=== PATIENT | female | born 1990 | race Caucasian/White ===

== ENCOUNTER 2025-01-12 10:45 | Emergency (ER) | payer OTHER, SELFPAY ==
[2025-01-12 10:46] VITALS: BP 123/69
[2025-01-12] MEDS: NSS 1000 IV (13:08)
[2025-01-12] MEDS: TORADOL 15 MG IV (13:08)
[2025-01-12] MEDS: REGLAN 10 MG IV (13:09)
[2025-01-12 13:15] VITALS: BMI 25.9
[2025-01-12 13:23] LABS: Hematocrit 38.9 % (37.0-47.0); Hemoglobin 13.0 g/dL (12.0-16.0); Mean Corp Hgb Conc. 33.4 g/dL (33.0-37.0); Mean Corpuscular Volume 91.3 fL (81.0-99.0); Nucleated Red Blood Cells % 0 %; Platelet Count 197 10^3/uL (130-400); Red Cell Dist. Width 12.4 % (11.5-14.5)
[2025-01-12 13:32] LABS: HCG, Serum Qualitative Screen Negative
[2025-01-12 13:49] LABS: ALT (SGPT) 13 U/L (0-35); AST (SGOT) 19 U/L (14-36); Albumin 4.6 g/dl (3.5-5.0); Alkaline Phosphatase 46 U/L (38-126); Blood Urea Nitrogen 9 mg/dl (7-17); Calcium 9.0 mg/dl (8.4-10.2); Carbon Dioxide 23 mmol/L (22-30); Chloride 107 mmol/L (98-107); Estimated Creatinine Clearance > 125 ml/min; Glucose 88 mg/dl (70-99); Potassium 4.2 mmol/L (3.5-5.1); Sodium 139 mmol/L (135-145); Total Protein 7.3 g/dl (6.3-8.2); eGFR > 60.00
--- NOTE | 2025-01-12 14:21 | ED.GENMED ---
History of Present Illness
General
Chief Complaint: Dizziness
Source: patient
Exam Limitations: none
Time Seen by Provider: 01/12/25 11:51
Nursing documentation reviewed up to this point in time: agreed with
History of Present Illness
History of Present Illness:
see MDM
Past History
Past History
ED Past Medical History: None
ED Past Surgical History: None
Social History
Tobacco: Smoker
Alcohol: Occasional
Personal: Single
Living: with family
Employment: Employed
Family History
Family History: Other
Review of Systems
Review of Systems
Allergies reviewed?: Yes
All Other Systems: Not applicable
Phy Exam
Physical Exam
Physical Exam:
GENERAL: Alert , in no apparent distress
HEAD: NCAT
EYE: pupils equal and reactive, no nystagmus, no photophobia
NECK: Supple,full rom, nontender, no midline tendreness
ENT: o/p clr, mmm.
CARDIAC: Regular rate and rhythm . no edema
LUNGS: Clear breath sounds bilaterally, no acute respiratory distress, no wheezes/rales/rhonchi
ABDOMEN: Soft, without focal tenderness, no r/g, no cvat
NEUROLOGICAL: Alert and orientedx 4, cn intact, no facial asymmetry, 5/5 strength in UE/LE, sensation intact, romberg neg, ambulates without assistance, neg pronator drift
SKIN: Warm and dry, skin intact.
MUSCULOSKELETAL: No edema, well perfused.
PSYCH: Normal and appropriate interaction.
Course
Orders/Labs/Results
Orders:
Orders
01/12/25 12:34
0.9% Sodium Chloride 1000 ml [Nss] 1,000 ml IV BOLUS
01/12/25 12:36
Electrocardiogram (*1) Urgent
Reason for Study: Syncope
EKG- Treatment ONCE
Test Result ONCE
01/12/25 12:41
CT Head W/o Iv Contrast Urgent
Comment:
Reason For Exam: headache x 2 mo after hitting head, off balance
01/12/25 12:44
Ketorolac [Toradol] 15 mg IV NOW STA
Metoclopramide [Reglan] 10 mg IV NOW STA
01/12/25 13:10
Complete Blood Count/With Diff Urgent
Comprehensive Metabolic Panel Urgent
HCG, Serum Qualitative Screen Urgent
Lyme Progressive Urgent
01/12/25 14:39
Dexamethasone Sod Phosphate [Decadron] 10 mg IV NOW STA
01/12/25 13:10
01/12/25 13:10
Vital Signs
Initial and Last Documented VS:
Initial Vital Signs
Temp Pulse Resp BP Pulse Ox
36.9 C 87 16 123/69 97
01/12/25 10:46 01/12/25 10:46 01/12/25 10:46 01/12/25 10:46 01/12/25 10:46
Last Documented Vital Signs
Temp Pulse Resp BP Pulse Ox
36.9 C 67 16 123/59 98
01/12/25 10:46 01/12/25 15:02 01/12/25 10:46 01/12/25 15:02 01/12/25 15:02
MDM/Problems Addressed
Differential Diagnosis Includes:
see MDM
MDM/Problems Addressed:
Note:
CHIEF COMPLAINT(S)
Feeling lightheaded and near-syncopal episodes.
HISTORY OF PRESENT ILLNESS
The patient is a 34-year-old female who presents with a history of persistent headaches, lightheadedness, and episodes where she feels she might pass out, particularly when standing or walking. She reports that these symptoms have been present since
she fell and hit her head on concrete two months ago. Following the fall, the patient did not seek immediate medical attention due to a lack of insurance. She clarified that the fall was mechanical and not due to a fainting episode. Since the fall,
she has experienced daily headaches rated at a severity of 10 out of 10, which are unrelieved by [id number] medications such as ibuprofen (referred to as Motrin).
The patient notes that her symptoms have progressively worsened over the past two weeks, culminating in an incident 3 days ago at work where she nearly passed out after. She also described feeling unwell enough since that event and couldn�t attend a
concert because she felt she might fall. She describes the dizziness as not accompanied by a spinning sensation, but rather as a lightheaded feeling and a sensation of losing balance. Additionally, the patient reports persistent neck and lower back
pain, likely related to her fall.
The patient has had previous emergency department visit 2 weeks ago when sypmtoms seemed to get worse where blood work was completed, showing no abnormalities, but no imaging completed.
2 days ago she saw PCP she was scheduled for an MRI next week by her primary care provider due to continuing symptoms. She also experienced numbness in two fingers on her left hand following the fall, which a previous physician suggested could be
due to carpal tunnel syndrome rather than the head injury.
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 She reports her fluid intake is good and denies any significant weight changes. Her family history is
significant for autoimmune disease, particularly her mothers thyroid-related autoimmune condition.
she also has had uri sxs x 4-5 weeks, started z balaji 2 days ago
(sore thraot, cough, voice hoarseness)
SOCIAL DETERMINANTS AFFECTING HEALTH
The patient did not seek immediate care for her head injury due to a lack of insurance coverage and financial constraints. She expressed stress outside her current symptoms, possibly exacerbating her health concerns.
FAMILY HISTORY
Mother has a thyroid-related autoimmune disorder.
REVIEW OF SYSTEMS
- Neurology: Persistent headache since hitting her head; lightheadedness and near-syncope episodes, primarily when standing or walking.
- Musculoskeletal: Persistent neck and lower back pain; numbness in the left two fingers.
- General: Reports feeling persistently tired.
PHYSICAL EXAM
- Nursing notes reviewed and vital signs reviewed.
- Neurological assessment reveals no acute focal deficits on examination.
- Cardiovascular: Reports a heart rate increase when standing, indicative of potential orthostatic issues.
PROBLEM LIST
Acute:
- Persistent headache following cranial trauma
- Lightheadedness and near-syncope with postural changes
- Upper limb numbness, left-sided
Chronic:
- History of autoimmune disease in the family
PLAN
- Perform CT imaging to evaluate for potential intracranial pathology related to the head injury.
- Conduct a detailed neurological examination.
- Monitor blood pressure and evaluate for orthostatic hypotension by assessing blood pressure changes with position.
- Prescribe analgesics for headache management, specifically those effective for migraine-type headaches.
- Recommend the patient follows through with the scheduled MRI to further assess her symptoms.
DIFFERENTIAL DIAGNOSIS
The Differential Diagnosis includes, in no particular order and is not limited to:
1. Post-concussive syndrome
2. Occipital neuralgia
3. Intracranial hemorrhage
4. Chiari malformation
5. Vestibular migraines
6. Cervicogenic headache
7. Orthostatic hypotension
8. Benign paroxysmal positional vertigo
9. Dehydration
10. Peripheral nerve entrapment (e.g., carpal tunnel syndrome)
01/12/25 - 14:39
The patients blood work is excellent, ruling out some concerns such as brain tumor or hemorrhage. The patients blood pressure remains stable upon standing. CT was neg n MRI is scheduled to assess persistent post-concussion symptoms. A fluid and
migraine medication, effective for migraines, was administered, leading to an improvement in pain levels. A course of steroids is being considered to prevent headache recurrence. The patient is advised to return if symptoms like increased imbalance,
fainting, numbness, or weakness occur. A referral to neurology will be provided for further evaluation.
*Pulse Oximetry
SaO2: 97
Oxygen Mode of Delivery: Room air
Patient hypoxic: no (97)
*Critical Care Note
Total Time (30-74mins, 75-104mins- exclusive of procedures): Not Applicable
ED Attending Note
-
Portions of this chart may have been created with voice recognition software.� Occasional wrong word or��sound alike� substitutions may have occurred due to the inherent limitations of voice recognition software.
Discharge Plan
Departure
Patient Disposition: Home (Routine Discharge)
Date of Disposition: 01/12/25
Time of Disposition: 14:39
Patient with high blood pressure during this ER visit?: No
Condition: Fair
Covid-19: Not Applicable
Discharge Problem:
Post concussion syndrome
Instructions: Dizziness, Nonvertigo, (DC), Post-Concussion Syndrome ED
Prescriptions:
No Action
naproxen sodium 550 MG tablet
550 mg PO [id number] PRN (Reason: pain)
amoxicillin-pot clavulanate 1 TABLET tablet
1 tab PO Q12
Referrals:
Enio Hill DO [Family Provider, Internal Medicine]
Ayla Barron MD [Non-Admitting Privileges, Neurology] - Follow up in 10 days
Activity Restrictions/Additional Instructions:
I think your symptoms are from postconcussive syndrome. Your head CT and blood work was reassuringly negative. You should still follow-up with neurologist as an outpatient. Call today to schedule an appointment because it can take some weeks to
get in. In the meantime you already have an MRI scheduled which is good. Should you have any worsening symptoms like sudden onset of severe headache, vision changes, numbness or tingling or weakness in your arms or legs or face, vision changes,
passing out etc. you should return to the ER immediately.
We gave you Reglan which is a migraine medication as well as Toradol in the ER and that I gave you a dose of steroids to hopefully prevent your headache from rebounding. You can continue Tylenol and ibuprofen as directed.
Interventions
Interventions:
*Risk Screen - Suicide Last Done: 01/12/25 13:11
*General Assessment Last Done: 01/12/25 13:11
*Neglect/Abuse Screening Last Done: 01/12/25 13:11
*ED- Fall Risk Assessment Last Done: 01/12/25 16:15
*ED COVID-19 Vaccine History Last Done: 01/12/25 13:11
*Nursing Disposition Last Done: 01/12/25 16:15
ED- Neurological Assessment Last Done: 01/12/25 12:00
Discharge Date and Time
Discharge Date/Time: 01/12/25 15:45
Print Language: AZERI
[2025-01-12] MEDS: DECADRON 10 MG IV (14:56)
[2025-01-12 15:02] VITALS: BP 123/59
[2025-01-13 15:31] LABS: Lyme Antibody Screen, EIA Negative (Negative)
== END 2025-01-12 15:45 | disposition home or self-care (01) ==
LOC: EMR 10:45
PROVIDERS: Physician Assistant; EMERGENCY PHYSICIAN Emergency Medicine; FAMILY PHYSICIAN Internal Medicine
DX: G44.309 Post-traumatic headache, unspecified, not intractable (principal); F07.81 Postconcussional syndrome; F17.200 Nicotine dependence, unspecified, uncomplicated; Z59.71 Insufficient health insurance coverage; Z59.86 Financial insecurity
CPT/HCPCS: 99284; 96374; 96375; 96361; 70450; 80053; 84703; 85025; 86618; 93005